=== PATIENT | male | born 1935 | race Caucasian/White ===

== ENCOUNTER 2017-12-16 19:26 | Emergency (ER) | payer MEDICARE, OTHER ==
[2017-12-16 19:31] VITALS: BP 142/78
[2017-12-16] MEDS ORDERED: METO50TA19 PO (19:35)
[2017-12-16] MEDS ORDERED: RIVA1TAB (19:35)
[2017-12-16] MEDS ORDERED: LEVO25TA57 PO (19:35)
--- NOTE | 2017-12-16 19:40 | ER Report ---
History and Physical Time Seen By MD: 19:37 Hx. of Stated Complaint: INGROWN MIDDLE TOENAIL ON LEFT FOOT. HURTS TO WALK HPI/ROS CHIEF COMPLAINT: Ingrown toenail HISTORY OF PRESENT ILLNESS: This is an 82-year-old male who presents to the emergency department for concerns of an ingrown toenail. Patient states that over the last couple days he's noticed a little bit of discomfort in his 3rd toe on the left foot. Has been making it increasingly difficult to walk however tonight became very painful noticed some redness in the low bit of swelling to the area as well. He decided to come in for further evaluation. Patient is here from [place] on a hunting trip they are staying about 40 miles out of town. Patient states he's had several ingrown toenails before. Denies fevers or chills. No nausea or vomiting. No other complaints. REVIEW OF SYSTEMS: Respiratory: No cough, no dyspnea. Cardiovascular: No chest pain, no palpitations. Gastrointestinal: No vomiting, no abdominal pain. Musculoskeletal: No back pain. Integumentary: As above. Allergies: Coded Allergies: Sulfa (Sulfonamide Antibiotics) (Verified Allergy, Intermediate, 12/16/17) Home Meds Active Scripts Cephalexin 500 Mg Tab (KEFLEX 500 MG TAB) 500 Mg Tablet, 500 MG PO Q6H, #23 TAB 0 Refills Prov:MIHIR SANDERS [employer]-BC 12/16/17 Reported Medications Levothyroxine Sodium (SYNTHROID) 25 Mcg Tablet, 25 MCG PO QDAY 12/16/17 Metoprolol Succinate (METOPROLOL SUCCINATE) 50 Mg Tab.er.24h, 1 TAB PO QDAY, TAB 12/16/17 Rivaroxaban (Xarelto) 1 Each Tab.ds.pk 12/16/17 Past Medical/Surgical History The patient has a past medical and surgical history of A. fib, enlarged prostate, arthritis, ingrown toenails, hypothyroidism, appendectomy. Reviewed Nurses Notes: Yes Constitutional Vital Sign - Last 24 Hours 12/16/17 19:31 Temp 97.5 Pulse 58 Resp 18 B/P (MAP) 142/78 Pulse Ox 93 O2 Delivery Room Air Physical Exam General Appearance: The patient is alert, has no immediate need for airway protection and no current signs of toxicity. Eyes: Pupils equal and round no injection. Respiratory: Chest is non tender, lungs are clear to auscultation. Cardiac: regular rate and rhythm. Gastrointestinal: Abdomen is soft and non tender, no masses, bowel sounds normal. Musculoskeletal: Neck: Neck is supple and non tender. Extremities have full range of motion and are non tender. Skin: Erythema, small amount of edema to the 3rd toe on the left foot, there is a small ingrown toenail on the lateral aspect of the toenail. DIFFERENTIAL DIAGNOSIS: After history and physical exam differential diagnosis was considered for cellulitis, ingrown toenail and osteomyelitis. Medical Decision Making ED Course/Re-evaluation ED Course The patient was met to room. A history and physical obtained. Differential diagnoses were considered. After evaluating the patient's toe I did place a very small amount of 1% lidocaine without epi into the area surrounding the ingrown toenail, I was able to remove a very small amount of debris and a small piece of ingrown toenail. Patient tolerated well. The wound was thoroughly cleansed. Patient was also placed on Keflex for the infection. Patient had no other questions or concerns at this time and was discharged home. Patient was also instructed to keep close observation on the toe and to return immediately for worsening symptoms. The patient and his both expressed understanding and were discharged home. Decision to Disposition Date: Dec 16, 2017 Decision to Disposition Time: 20:18 Depart Departure Latest Vital Signs Vital Signs Date Time Temp Pulse Resp B/P (MAP) Pulse Ox O2 Delivery O2 Flow Rate FiO2 12/16/17 19:31 97.5 58 18 142/78 93 Room Air Impression: Primary Impression: Cellulitis of third toe of left foot Additional Impression: Ingrown toenail of left foot Condition: Improved Disposition: HOME OR SELF-CARE New Scripts Cephalexin 500 Mg Tab (KEFLEX 500 MG TAB) 500 Mg Tablet 500 MG PO Q6H, #23 TAB 0 Refills Prov: GETMIHIR DUONG [employer]-BC 12/16/17 Patient Instructions: Cellulitis (ED), Ingrown Nail (ED) Additional Instructions: Be sure to take the antibiotics for the skin infection on your toe. Be sure to monitor very closely for worsening symptoms such as increased redness, pain or swelling, if you notice these please return immediately. Change the bandages regularly with antibiotic ointment. Drink plenty of fluids. Get plenty of rest. Return to the ED for any other concerns or worsening symptoms. Problem Qualifiers MIHIR S[employer]ERS [employer]-BC Dec 16, 2017 19:40
[2017-12-16] MEDS ORDERED: CEPH500T7 PO (20:20)
[2017-12-16] MEDS ORDERED: CEPHALEXIN MONO 500 MG CAP PO ONE (20:25)
[2017-12-16] MEDS ORDERED: CEPHALEXIN 500 MG CAP TH 2 CAP/BOTTLE PO ONE (20:25)
== END 2017-12-16 20:45 | disposition home or self-care (01) ==
LOC: ER 19:46
DX: L03.032 Cellulitis of left toe (principal); L60.0 Ingrowing nail
CPT/HCPCS: 99283; A9270